=== PATIENT | male | born 1990 | race Caucasian/White ===

== ENCOUNTER 2022-06-13 17:27 | Emergency (ER) | payer SELFPAY ==
[~2022-06-13] VITALS: Ht 167.6 cm; Wt 65.8 kg
--- NOTE | 2022-06-13 17:40 | NUR ---
RECEIVED PT 31 YRS MALE CAME FROM HOME C/O BACK pain x 5 days HX hernited desk
--- NOTE | 2022-06-13 17:45 | NUR ---
NO WEEKNESS MOVING ALL EXTRAMITY NOTED
--- NOTE | 2022-06-13 17:50 | NUR ---
SEEN BY DR. SANZ
[2022-06-13] MEDS ORDERED: predniSONE 20 MG TABLET PO ONE (18:00)
[2022-06-13] MEDS ORDERED: ONDANSETRON HCL/PF 4 MG/2 ML VIAL IVP ONE (18:00)
--- NOTE | 2022-06-13 18:00 | NUR ---
TO CT SCAN
[2022-06-13] MEDS ORDERED: predniSONE 20 MG TABLET ONE (18:10)
[2022-06-13] MEDS ORDERED: ONDANSETRON HCL/PF 4 MG/2 ML VIAL ONE (18:10)
[2022-06-13] MEDS ORDERED: MORPHINE SULFATE INJ 4 MG/ML DISP.SYRIN ONE (18:11)
--- NOTE | 2022-06-13 18:25 | NUR ---
INSERTED ANGO CATHETER G 20 ON RT AC BLOOD DROW AND SENT TO LAB
[2022-06-13] MEDS: MORPHINE SULFATE INJ 2 MG/ML DISP.SYRIN IV ONE ×2 (18:40→18:43)
--- NOTE | 2022-06-13 19:00 | NUR ---
PAIN CONTOLED AND REDUCE TO 5 /10
--- NOTE | 2022-06-13 19:30 | NUR ---
HAND OFF CHERYL TREVIÑO
[2022-06-13 19:33] LABS: CARBON DIOXIDE 32 mmol/L (21-32); CHLORIDE 100 mmol/L (98-107); CREATININE 0.9 mg/dL (0.6-1.3); GLUCOSE 97 mg/dL (74-106); POTASSIUM 3.7 mmol/L (3.5-5.1); SODIUM SERUM 137 mmol/L (136-145); UREA NITROGEN, BLOOD 17 mg/dL (7-18)
[2022-06-13 19:54] LABS: BASOPHILS % (AUTO) 0.1 % (0.0-2.0); EOSINOPHILS % (AUTO) 0.1 % (0.0-6.0); HEMATOCRIT 44 % (39-51); HEMOGLOBIN 14.6 g/dL (13.5-17.5); LYMPHOCYTES # (AUTO) 1.8 K/uL (0.8-4.8); LYMPHOCYTES % (AUTO) 16.3 % (20.0-44.0); MEAN CORPUSCULAR HGB CONC 33 g/dl (31.0-36.0); MEAN CORPUSCULAR VOLUME 86 fL (80-96); MONOCYTES # (AUTO) 0.7 K/uL (0.1-1.30); NEUTROPHILS # (AUTO) 8.5 K/uL (1.8-8.9); NEUTROPHILS % (AUTO) 77.5 % (43.0-81.0); PLATELET COUNT (AUTO) 260 K/uL (150-450); RED BLOOD CELL COUNT(AUTO) 5.15 MIL/uL (4.5-6.0)
[2022-06-13] MEDS ORDERED: KETOROLAC TROMETHAMINE INJ 30 MG/ML VIAL ONE (19:59)
[2022-06-13] MEDS ORDERED: METHOCARBAMOL (500MG) 500 MG TABLET PO ONE (20:00)
[2022-06-13] MEDS ORDERED: KETOROLAC TROMETHAMINE INJ 30 MG/ML VIAL IV ONE (20:00)
[2022-06-13] MEDS ORDERED: HYDR-3972 PO ×2 (20:02→20:42)
[2022-06-13] MEDS ORDERED: PRED50TA PO ×2 (20:02→20:42)
[2022-06-13] MEDS ORDERED: METH-647 PO ×2 (20:02→20:42)
[2022-06-13] MEDS ORDERED: METHOCARBAMOL (500MG) 500 MG TABLET ONE (20:03)
--- NOTE | 2022-06-13 20:10 | NUR ---
TORADOL 1 ML INJ AND ROBAXIN 500MG TAB GIVEN. PT TOLERATED WELL.
--- NOTE | 2022-06-13 20:36 | NUR ---
IV removed. Catheter intact and site benign. Pressure and 4x4 applied to site. No bleeding noted.Patient discharged to home in stable condition. Written and verbal after care instructions given. Patient verbalizes understanding of instruction. DAD AT THE BEDSIDE
[2022-06-13 20:48] VITALS: BP 123/77
[2022-06-13] MEDS ORDERED: HYDR-3980 PO (21:10)
== END 2022-06-13 20:51 | disposition home or self-care (01) ==
LOC: ER 17:36
DX: M54.16 Radiculopathy, lumbar region (principal); M51.26 Other intervertebral disc displacement, lumbar region
CPT/HCPCS: 99285; 96374; 72131; 71045; 96375; 93005 ×3; 85025; 80048; 36415; 84484; J2270; J7512; J1885; J2405